=== PATIENT | female | born 1995 | race Caucasian/White ===

== ENCOUNTER 2016-08-03 13:54 | Observation (INO) ==
--- NOTE | 2016-08-03 16:28 | OB/GYN History & Physical ---
Date of Encounter: 08/03/16 Time of Encounter: 16:25 Assessment and Plan (1) Threatened labor at term Current visit: Yes Status: Acute - Continue to monitor labor progression. History of Present Illness HPI: Ms. Ceballos is a 21 year old female who is presenting with loss of her mucous plug this morning. She states she has been feeling mild contractions. She denies any recent illnesses. Past Med Surg Social Fam HX - Past Medical History Medical history: no medical history Psychiatric history: no psych history - Past Surgical History Surgical History: other - Social History Smoking Status: Never smoker - Family History Mother Living Status: Still Living Hx Family Psychosocial Disorders: Yes Obstetrical History - Pregnancies : 1 Para: 0 Medications and Allergies Ferrous Sulfate [Iron] 1 tab PO DAILY 08/03/16 [History] 19 Tablet 1 tab PO DAILY 08/03/16 [History] Allergies No Known Allergies Allergy (Verified 08/03/16 14:22) Review of System OB All systems PM: reviewed and no additional remarkable complaints except as stated - Constitutional Constitutional ROS IM: no chills, no fever(s), no headache(s) - Nose, mouth, and throat Nose, mouth and throat: no disequilibrium, no dizziness, no dysphagia, no epistaxis, no nasal congestion, no neck pain, no sinus pain, no sinus pressure, no sore throat - Cardiovascular Cardiovascular: pedal edema (Worse when she has been standing for long periods of time.), no chest pain, no dyspnea, no dyspnea on exertion - Respiratory Respiratory: no cough, no dyspnea, no hemoptysis, no chest congestion - Gastrointestinal Gastrointestinal: no abdominal pain, no change in stool character, no cramping, no diarrhea, no melena, no vomiting - Genitourinary Genitourinary: vaginal discharge (Clear fluid. Minor bleeding this morning with "mucous plug."), no change in urinary stream, no difficulty voiding, no urinary hesitancy, no urinary incontinence, no urinary urgency - Muscloskeletal Musculoskeletal: no abnormal gait, no joint swelling, no neck pain, no stiffness - Integumentary Integumentary: no erythema, no rash, no swelling, no unusual bruising, no wounds Exam - Constitutional Constitutional: well developed, well nourished, no acute distress - HEENT HEENT: EOMI, PERRL, Normocephaly, Mucus Membranes Moist - Neck Neck exam: full ROM, normal inspection, supple, trachea midline - Lungs Respiratory exam: CTAB - Abdomen Abdomen: Present: bowel sounds normal, gravid, non tender - Extremities Extremities exam: normal capillary refill, normal inspection, pedal edema (Mild bilaterally.) Deep Tendon Reflex Grade: 2+ Normal Results All other labs normal. - VTE Reasons for not Prescribing Prophylaxis: Treatment not Indicated - Low risk for VTE - Attending Attestation I examined this patient and my medical decision-making was reviewed with the Resident Physician. I agree with the documented findings, disposition and treatment plan as described except to the extent set forth below. Jaky Carranza DO
== END 2016-08-03 17:27 | disposition home or self-care (01) ==
LOC: 1NENULAB
PROVIDERS: ADMIT Emergency Medicine; ATTEND Obstetrics & Gynecology

== ENCOUNTER 2016-08-03 20:23 | Inpatient (IN) ==
[2016-08-04] MEDS ORDERED: Naloxone 0.4 MG/ML INJ IVP PRN (00:56)
[2016-08-04] MEDS ORDERED: Metoclopramide 10 MG/2 ML VIAL IVP PRN (00:56)
[2016-08-04] MEDS ORDERED: Famotidine 20 MG/2 ML VIAL IVP PRN (00:56)
[2016-08-04] MEDS ORDERED: Ondansetron 4 MG/2 ML VIAL IVP PRN (00:56)
[2016-08-04] MEDS ORDERED: Famotidine 20 MG/2 ML VIAL IVP ONE (01:18)
[2016-08-04] MEDS: Ringers Solution, Lactated 1,000 ML IVC SCH ×2 (01:20→12:07)
[2016-08-04 01:24] LABS: Basophils % 0.1 %; Eosinophils % 0.1 %; Hematocrit 37.5 % (35.3-44.9); Hemoglobin 12.4 g/dL (11.5-15.4); Immature Granulocytes % 0.4 % (0-4); Lymphocytes # 1.4 K/mcL (0.6-4.6); Lymphocytes % 8.8 %; Mean Corpuscular HGB Conc 33.1 g/dL (31.6-35.5); Mean Corpuscular Hemoglobin 29.1 pg (28.0-33.3); Mean Platelet Volume 10.9 fL (9.4-12.4); Monocytes # 0.9 K/mcL (0.0-1.3); Monocytes % 5.8 %; Neutrophils # 13.9 K/mcL (1.6-8.9); Platelet Count 185 K/mcL (140-400); Red Blood Count 4.26 M/mcL (3.82-4.97); Segmented Neutrophils % 84.8 %
[2016-08-04] MEDS ORDERED: Bupivacaine-MPF 0.25% 10 ML VIAL ONE (02:13)
[2016-08-04] MEDS ORDERED: Epidural Premix (fent/bupiv) 110 ML EP ONE ×2 (02:13→09:59)
[2016-08-04] MEDS ORDERED: *HR* FentaNYL (PF) 100 MCG/2 ML VIAL ONE (02:13)
[2016-08-04] MEDS ORDERED: Bupivacaine-MPF 0.25% 10 ML VIAL EP ONE (02:37)
[2016-08-04] MEDS ORDERED: Ringers Solution, Lactated 500 ML IVC ONE (02:37)
[2016-08-04] MEDS ORDERED: *HR* FentaNYL (PF) 100 MCG/2 ML VIAL EP ONE (02:37)
[2016-08-04] MEDS ORDERED: EPHEDrine 50 MG/ML VIAL IVP PRN (02:37)
--- NOTE | 2016-08-04 02:41 | Anesthesia Procedures ---
Date of Encounter: 08/04/16 Time of Encounter: 02:10 Procedures: Anesthesia - Epidural/Spinal Patient ID/Chart reviewed: Yes Patient examined: Yes OB Eval: Gestational age: 38 OB Eval: : 1 OB Eval: Hx Para: 0 OB Eval: Dilated at (cm): 5 OB Eval: Contractions: Non-stressed pattern Consent Obtained: Yes Supplemental Oxygen: None/Room Air Site Prep: Aseptic Technique Patient position: upright Local Anesthetic: Lidocaine 1% Amount of Local Anesthetic used: 3 Touhy Needle Gauge: 18 Catheter Depth at Skin (cm): 5 Test Dose (1.5% Lido + Epi): Volume given (mls): 3 Test Dose Result: Negative Loading Dose: 0.25% Marcaine (mls): 5 Loading Dose: Fentanyl (mcg): 100 Loading Dose: Other: 3ml nss Loading Dose Administered: Thru Touhy Needle Infusion Med: 0.125% Bupivacaine w/ 2 mcg/ml Fentanyl Infusion Rate (mls/hr): [address]: Tegaderm Interspace Used: L3-L4 Loss of Resistance (FRANC): Yes Blood: No CSF: No Paresthesia: No Procedure: Strict asepsis, good franc, fhr unchanged
--- NOTE | 2016-08-04 02:44 | Anesthesia Evaluation PreOp ---
Date of Encounter: 08/04/16 Time of Encounter: 02:10 - Past History Planned Operation: olivia Cardiac History: Denies any Significant Hx Pulmonary History: Denies Any Significant HX FOLDER MACHINE ADJUSTER History: Denies Any Significant HX Other Medical History: Denies Any Significant HX Anesthesia History: No Prior Anesthetic Complications, Past Anesthesia : Yes (38 weeks, ) Alcohol Use: none Drug use: none Medications and Allergies Ferrous Sulfate [Iron] 1 tab PO DAILY 08/03/16 [History] 19 Tablet 1 tab PO DAILY 08/03/16 [History] Allergies No Known Allergies Allergy (Verified 08/03/16 14:22) - Meds/Allergy Pre-op Review Medications Reviewed: Yes Allergies Reviewed: Yes Beta Blockers on Current Med List: No Anesthesia Results - Labs 08/04/16 01:15 Anesthesia Exam O2 Sat Height 1.63 m Height 1.63 m Weight 86 kg Weight 86 kg Height: 64 - HEENT Pupil (Motor): Pupils equal Mallampati: II Teeth: Normal Oral Opening: Greater than 3 - FOLDER MACHINE ADJUSTER LOC: Oriented FOLDER MACHINE ADJUSTER Motor: Normal RUE, Normal LUE, Normal RLE, Normal LLE, Normal Face FOLDER MACHINE ADJUSTER Sensory: Normal: RUE, LUE, RLE, LLE, Face - Cardiac Rhythm: Regular Murmur: None JVD: No Carotid Bruit: No - Pulmonary Breath Sounds: bilateral Clear Respiratory Effort: Symmetrical Anesthesia Assess/Plan ASA Score: 2 Modified [place] Scale for Level of Consciousness: Cooperative, oriented, and tranquil Anesthetic Plan: Regional Monitoring Plan: Standard Monitors
[2016-08-04] MEDS ORDERED: Epidural Premix (fent/bupiv) 110 ML EP SCH (02:45)
--- NOTE | 2016-08-04 06:34 | OB/GYN History & Physical ---
Date of Encounter: 08/04/16 Time of Encounter: 06:15 Assessment and Plan (1) Threatened labor at term Current visit: No Status: Acute - Continue to monitor progression. (2) 38 weeks gestation of Current visit: Yes Status: Acute History of Present Illness HPI: Ms. Ceballos is a 21 year old female who is 38 weeks and 6 days. Patient is . She had an uncomplicated . She is group B strep negative. She presented here yesterday and possible labor. We monitored with no progression noted. She does live approximately an hour away from the hospital so she decided to go eat and walk around in [place]. She stated she noticed her contractions getting closer together and more intense so she returned to labor and delivery. She is slowly progressing at this time. She presented at the dilation of 4 around 20:30 last night. Now her dilation is 5- 6 cm. She does have bloody show and examined. Station was at -2 when she presented she is now to 0. Patient is resting comfortably in bed she does have an epidural in place. She has no complaints at this time. We will continue to monitor. Past Med Surg Social Fam HX - Past Medical History Medical history: no medical history Psychiatric history: no psych history - Past Surgical History Surgical History: other - Social History Smoking Status: Never smoker Smokeless Tobacco Status: No Alcohol use: none Drug use: none - Family History Mother Adopted: [place]: Netta Ceballos Living Status: Still Living Hx Family Cardiac Disorders: No Hx Family Respiratory Disorders: No Hx Family Cancer: No Hx Family GI Disorders: No Hx Family Genitourinary Disorders: No Hx Family Endocrine Disorder: No Hx Family Musculoskeletal Disorders: No Hx Family Neuromuscular Disorders: No Hx Family Neurologic Disorders: No Hx Family HEENT Disorders: No Hx Family Autoimmune Disorders: No Hx Family Reproductive Disorders: No Hx Family Psychosocial Disorders: No Hx Family Medical Disorders: No Obstetrical History - Pregnancies : 1 Para: 0 Medications and Allergies Ferrous Sulfate [Iron] 1 tab PO DAILY 08/03/16 [History] 19 Tablet 1 tab PO DAILY 08/03/16 [History] Allergies No Known Allergies Allergy (Verified 08/03/16 14:22) Review of System OB All systems PM: reviewed and no additional remarkable complaints except as stated - Constitutional Constitutional ROS IM: no fever(s) - Nose, mouth, and throat Nose, mouth and throat: no disequilibrium, no dizziness, no dysphagia, no headache(s), no nasal congestion, no neck pain, no vertigo - Cardiovascular Cardiovascular: pedal edema (Mild, resolved at this time.), no chest pain, no chest pain at rest, no diaphoresis, no dyspnea, no leg edema, no lightheadedness , no syncope - Respiratory Respiratory: no cough, no dyspnea, no hemoptysis, no chest congestion - Gastrointestinal Gastrointestinal: no abdominal pain, no cramping, no diarrhea, no nausea, no vomiting Exam - Constitutional Constitutional: well developed, well nourished, no acute distress - HEENT HEENT: EOMI, PERRL, Normocephaly, Mucus Membranes Moist - Neck Neck exam: full ROM, normal inspection, supple, trachea midline - Lungs Respiratory exam: CTAB - Cardiovascular Cardiovascular exam: RRR - Extremities Extremities exam: normal capillary refill, normal inspection, pedal edema ( Minor.) Results Result Diagrams: 08/04/16 01:15 Abnormal lab results WBC 16.3 K/mcL (4.3-11.1) H 08/04/16 01:15 RDW 15.0 % (11.5-14.5) H 08/04/16 01:15 Neutrophils # 13.9 K/mcL (1.6-8.9) H 08/04/16 01:15 All other labs normal. - VTE Reasons for not Prescribing Prophylaxis: Treatment not Indicated - Low risk for VTE - Attending Attestation I examined this patient and my medical decision-making was reviewed with the SURGICAL PROCESSOR/PA/Advanced Practice Nurse/Resident Physician. I agree with the documented findings, disposition and treatment plan as described except to the extent set forth below.
--- NOTE | 2016-08-04 13:11 | OB Labor Progress Note ---
Date of Encounter: 08/04/16 Time of Encounter: 13:09 Labor Progress Note - Subjective Subjective: Patient resting in bed with epidural in place. Patient denies any pain. Discussed POC with patient. Patient denies any questions or concerns. - Cervix Cervix: 8/100/0 - Heart Tones Heart Tones: 135 bpm moderate variability +15x15 accels no decels noted. Cat. 1 tracing. - Kenova Kenova: 3-4 min apart - Interventions Interventions: SVE, AROM small amount of clear fluid. - Plan Plan: Continue labor management.
[2016-08-04] MEDS ORDERED: Oxytocin 20 units/ LR 1000 mL 20 UNIT/1,000 ML BAG IVC ONE ×2 (14:27→17:22)
[2016-08-04] MEDS ORDERED: Lidocaine/EPI 1:100k 1% 30 ML VIAL ONE (15:33)
--- NOTE | 2016-08-04 17:12 | OB/GYN Procedure Note ---
Delivery - Delivery Date: 08/04/16 Provider: Sujey Baer Intrapartum events: none Delivery induction: none Delivery augmentation: rupture of membranes Delivery monitor: external FHT, external uterine Anesthesia: epidural Estimated Blood Loss: 300 - (s) Infant A Delivery Date: 08/04/16 Infant Delivery Time: 15:52 Presentation: vertex Position: TAURUS Route of delivery: Gender: Female Viability: Viable Pounds: 7 Ounces: 7 at 1 minute: 8 at 5 mins: 9 Shoulder Dystocia: not encountered Placenta: spontaneous Cord: 3 umbilical vessels, other (Cord around body, delivered through cord) - Repair Episiotomy: none Laceration Description: Perineal - 3rd Degree (partial), Labial (bilateral) - Complications Delivery complications: none Delivery comments: The patient was complete and pushing with epidural anesthesia with a spontaneous vaginal delivery in the TAURUS position of a vigorous female infant weighing 7 lbs. 7 oz. with Apgars of 8 at 1 minute and 9 at 5 minutes. Infant was placed on the maternal abdomen. The cord was clamped and cut after pulsations ceased. The placenta was delivered spontaneous and intact. Bilateral labial lacerations were repaired with 4-0 Vicryl in a running nonlocking fashion. There was a partial third perineal laceration which was not hemostatic and was repaired with 3-0 Vicryl in the usual fashion, using a separate 3-0 Vicryl to support the transverse peroneus. Estimated blood loss 300 mL, complications none - Disposition Mom disposition: stable in LDR [place] disposition: stable in LDR
[2016-08-04] MEDS ORDERED: Oxytocin 20 units/ LR 1000 mL 20 UNIT/1,000 ML BAG IV SCH (17:22)
[2016-08-04] MEDS ORDERED: *HR* HYDROcodone/Acet 5/325 mg TABLET PO PRN (17:22)
[2016-08-04] MEDS ORDERED: Measles/Mumps/Rubella Vacc 0.5 ML VIAL SQ PRN (17:22)
[2016-08-04] MEDS: Ibuprofen 600 MG TABLET PO PRN (19:58)
[2016-08-05 04:51] LABS: Basophils % 0.2 %; Eosinophils # 0.1 K/mcL (0.0-0.6); Eosinophils % 0.8 %; Hematocrit 30.3 % (35.3-44.9); Immature Granulocytes % 0.5 % (0-4); Lymphocytes # 2.1 K/mcL (0.6-4.6); Lymphocytes % 15.7 %; Mean Corpuscular HGB Conc 32.3 g/dL (31.6-35.5); Mean Corpuscular Hemoglobin 29.2 pg (28.0-33.3); Mean Corpuscular Volume 90.2 fL (83.0-100.0); Mean Platelet Volume 10.5 fL (9.4-12.4); Monocytes % 7.6 %; Platelet Count 148 K/mcL (140-400); Red Blood Count 3.36 M/mcL (3.82-4.97); Red Cell Distribution Width 15.2 % (11.5-14.5); Segmented Neutrophils % 75.2 %
[2016-08-05 04:53] LABS: Hemoglobin 9.8 g/dL (11.5-15.4)
[2016-08-05 07:44] VITALS: BP 102/66
[2016-08-05] MEDS ORDERED: Prenatal Vit/FA 1 EACH TABLET PO SCH (09:00)
[2016-08-05] MEDS: Ibuprofen 600 MG TABLET PO PRN (09:04)
--- NOTE | 2016-08-05 09:04 | Discharge Summary ---
Date of Encounter: 08/05/16 Time of Encounter: 09:02 - Discharge Diagnosis (1) Status post vaginal delivery Priority: Primary Status: Acute Comments: Continue routine care discharge home today follow up in 4-[address] Shah - Discharge Medications Prescriptions: Ibuprofen [Motrin] 600 mg PO Q6HR PRN #60 tablet PRN Reason: Cramping Docusate [Colace] 100 mg PO BID #60 capsule Home Medications: 19 Tablet 1 tab PO DAILY 08/03/16 [History] Docusate [Colace] 100 mg PO BID #60 capsule 08/05/16 [Rx] Ibuprofen [Motrin] 600 mg PO Q6HR PRN #60 tablet 08/05/16 [Rx] Vit/FA 1 each PO DAILY tablet 08/05/16 [Rx] Allergies/Adverse Reactions: Allergies No Known Allergies Allergy (Verified 08/03/16 14:22) Data Procedures and tests throughout hospitalization: Laboratory Tests 08/04/16 08/05/16 01:15 04:35 WBC 16.3 H 13.2 H RBC 4.26 3.36 L Hgb 12.4 9.8 L D Hct 37.5 30.3 L MCV 88.0 90.2 MCH 29.1 29.2 MCHC 33.1 32.3 RDW 15.0 H 15.2 H Plt Count 185 148 MPV 10.9 10.5 Immature Gran % 0.4 0.5 Seg Neutrophils % 84.8 75.2 Lymphocytes % 8.8 15.7 Monocytes % 5.8 7.6 Eosinophils % 0.1 0.8 Basophils % 0.1 0.2 Neutrophils # 13.9 H 10.0 H Lymphocytes # 1.4 2.1 Monocytes # 0.9 1.0 Eosinophils # 0.0 0.1 Basophils # 0.0 0.0 Labs on day of discharge: Labs from last 24 hours 08/05/16 04:35 WBC 13.2 H RBC 3.36 L Hgb 9.8 L D Hct 30.3 L MCV 90.2 MCH 29.2 MCHC 32.3 RDW 15.2 H Plt Count 148 MPV 10.5 Immature Gran % 0.5 Seg Neutrophils % 75.2 Lymphocytes % 15.7 Monocytes % 7.6 Eosinophils % 0.8 Basophils % 0.2 Neutrophils # 10.0 H Lymphocytes # 2.1 Monocytes # 1.0 Eosinophils # 0.1 Basophils # 0.0 Date of admission: 08/03/16 20:23 Primary care physician: PCP NO Consults: 08/04/16 17:22 Consult to [facility] Herbalist [CONS] Routine Comment: Vaginal delivery, consult needed Discharging clinician: Laila Khan Anticipated date of discharge: 08/05/16 - Patient Status Disposition: Home, Self-Care Condition: Good Functional capacity at discharge: independent ambulation - Discharge Instructions Follow Up With: NO,PCP [Primary Care Provider] - Hung Shah MD [Partnered Physician] - - Diet and Activity Activity: increase activity as tolerated Diet: regular diet Hospital Course Reason for admission: active labor Delivery: Episiotomy: none Laceration: 3rd degree Other procedures: none complications: none Discharge diagnosis: IUP at term delivered [place] baby: female (breast feeding) Time Attestation: Total time spent providing and/or coordinating discharge services: Time Spent: Less than 30 minutes Exam - Constitutional Vitals: Temp Pulse Resp BP Pulse Ox 97.6 F 80 16 102/66 100 08/05/16 07:30 08/05/16 07:30 08/05/16 07:30 08/05/16 07:30 08/04/16 20:45 General appearance IM: A&O X 3, pleasant, answers questions appropriately - Respiratory Respiratory exam: Present: CTAB - Cardiovascular Cardiovascular exam IM: Present: RRR, +S1, +S2 - GI/Abdominal GI/Abdominal exam IM: normal bowel sounds - Uterine Tone: Firm Uterus Position: 1 Finger Below Umbilicus, Midline - Extremities Exam Extremities exam IM: Present: normal capillary refill, normal inspection - Neurological Exam Neurological exam: alert, oriented X3, reflexes normal
== END 2016-08-05 17:14 | disposition home or self-care (01) | DRG 542 ==
LOC: 1NENULAB → OBSVTOIN 20:23 → 1NENUOBS 08-04 18:33
PROVIDERS: ADMIT Obstetrics & Gynecology; ATTEND Obstetrics & Gynecology